=== PATIENT | female | born 1985 | race Caucasian/White ===

== ENCOUNTER → 2017-03-21 | Outpatient (CLI) | payer OTHER ==
[~2017-03-21] MED LIST: LAN-O-SOOTHE7 GM TP; MOTRIN-DPS800 MG PO; NIPPLECREAM TP; PRENATAL VITAM1 EAC6 PO; PRILOSEC DPS20 MG PO
== END | disposition home or self-care (01) ==
LOC: RAD.S 10:55
DX: Z36 Encounter for antenatal screening of mother (principal); Z3A.20 20 weeks gestation of pregnancy